=== PATIENT | female | born 1985 | race Caucasian/White ===

== ENCOUNTER 2019-04-11 19:56 | Inpatient (IN) | payer MEDICAID ==
[~2019-04-11] VITALS: Ht 154.9 cm; Wt 67.6 kg
[2019-04-11 20:02] VITALS: Ht 154.9 cm; Wt 67.6 kg
--- NOTE | 2019-04-11 20:04 | NUR ---
EKG IN PROGRESS.
--- NOTE | 2019-04-11 20:10 | NUR ---
EKG REVIWED BY . PT BACK TO [facility] WAITING ROOM AVAILIBLITY . NO DISTRSS.
--- NOTE | 2019-04-11 20:45 | NUR ---
PT C/O CHEST PAIN SINCE 1300. PT DESCRIBES PAIN 8/10 DULL PAIN RADIATING TO LEFT ARM. PT REPORTS NUMBNESS IN THE LEFT ARM. PT REPORTS 8/10 MERA, DESCRIBED PRESSURE. PT REPORTS DIZZINESS AND BLURRED VISION AROUND 1900, BUT REPORTS NO LONGER EXPERIENCING THOSE SYMPTOMS. PT PLACED ON CUSHION STUFFER AND PULSE OX. VSS, RESPS E/U, NAD NOTED AT THIS TIME. WILL CONTINUE TO MONITOR.
--- NOTE | 2019-04-11 21:17 | NUR ---
X-RAY AT BEDSIDE
[2019-04-11 21:28] LABS: PLATELET COUNT 255 x10^3mcL (130-400)
[2019-04-11 21:31] LABS: RED CELL DISTRIBUTION WIDTH 22.3 % (11.5-14.5)
[2019-04-11 21:42] LABS: CALCIUM 9.7 mg/dL (8.5-10.1); CARBON DIOXIDE 21.9 mmol/L (21-32); CHLORIDE SERUM 110 mmol/L (98-107); CREATININE SERUM 0.8 mg/dL (0.6-1.0); GFR1 > 60 mL/min; GLUCOSE SERUM 90 mg/dL (74-106); MONOCYTE 3 % (0-7); POTASSIUM SERUM 3.6 mmol/L (3.5-5.1); SEGMENTED NEUTROPHILS 63 % (37-75); SODIUM SERUM 147 mmol/L (136-145)
--- NOTE | 2019-04-11 21:42 | NUR ---
MEDICATION ADMINISTERED PER MD ORDER
[2019-04-11 21:45] LABS: rbc morphology (normal/abnorm) ABNORMAL (NORMAL); tear drop cell (dacryocyte) 1+
[2019-04-11 21:46] LABS: PLATELET MORPHOLOGY PLATELETS NORMAL
--- NOTE | 2019-04-11 21:47 | NUR ---
PT AWAKE AND ALERT, LAYING IN POSITION OF COMFORT. MERARY RN AT BEDSIDE TO ATTEMPT 20G IV PLACEMENT. VSS, RESPS E/U, NAD NOTE. 2 BED RAILS UP, BED IN LOW AND LOCKED POSITION. CALL LIGHT W/IN REACH. WILL CONTINUE TO MONITOR
[2019-04-11 21:48] LABS: ALBUMIN 3.9 g/dL (3.4-5.0); ALKALINE PHOSPHATASE 59 U/L (46-116); ALT/SGPT 24 U/L (14-59); AST/SGOT 3 U/L (15-37); BILIRUBIN TOTAL 0.46 mg/dL (0.20-1.00); HDL CHOLESTEROL 36 mg/dL (40-60); LIPASE 44 IU/L (73-393); TRIGLYCERIDES 68 mg/dL (<150)
[2019-04-11 21:49] LABS: CHOLESTEROL 127 mg/dL (<200); CHOLESTEROL/HDL RATIO 3.5
[2019-04-11 21:55] LABS: T3 TOTAL 1.09 ng/mL
[2019-04-11 22:26] LABS: FREE T4 0.9 ng/dL (0.76-1.46); FREE THYROXINE INDEX 2.5 ug/dL (1.4-4.5); T4(THYROXINE) 7.8 ug/dL (4.7-13.3)
--- NOTE | 2019-04-11 22:58 | NUR ---
PT AWAKE AND ALERT, LAYING IN POSITION OF COMFORT. 2 BED RAILS UP, BED IN LOW AND LOCKED POSITION. VSS, RESPS E/U, NAD NOTED AT THIS TIME. PT ON 2L O2 VIA NC. PT C/O 04/05 MERA PAIN. MADE AWARE.
--- NOTE | 2019-04-11 23:06 | NUR ---
RREPORT GIVEN TO NEREYDA HUGHES
[2019-04-11 23:39] VITALS: BP 127/78
[2019-04-12] VITALS (12 sets, daily range): BP systolic 103–146; BP diastolic 52–83
--- NOTE | 2019-04-12 00:03 | NUR ---
PT ARRIVED ON THE FLOOR FROM ED. REPORT WAS RECIEVED FROM NURSE EARLENE. PT IS A/O X4. PT IS ON TELE #11 NSR. PT DENIES ANY PAIN AT THIS TIME. PT BREATHING IS EVEN AND UNLABORED. PT IS ON O2 2L NC. LUNG SOUNDS ARE CLEAR BILATERALLY. MILD SOB AT EXERTION. PT HAS MILD GENERAL WEAKNESS. PT IS ON MENSTRUL CYCLE. PT STATED HEAVY PERIODS IN THE LAST MONTHS. BLOOD TRANSFUSION PAMPLET GIVEN. PT SIGNED BLOOD TRANSFUSION CONSENT. WILL CONTINUE TO MONITOR.
--- NOTE | 2019-04-12 00:25 | NUR ---
STARTING THE FIRST UNIT OF PRBC, VSS, TYLENOL AND BENADRYL MEDICATED PER MD ORDER, EDUCATED PT WITH BLOOD TRANSFUSION ALLERY REACTION OF S&S, PT VERBALIZED UNDERSTANDING, REAMINING AT BEDSIDE WITH PT FOR FIRST 15 MINS.
--- NOTE | 2019-04-12 00:34 | NUR ---
STARTING THE 1ST UNIT OF PRBC, BLOOD INFUSING @ 70 ML/HR FOR INITIAL RATE, PT C/O OF MILD ITCHNESS ON HER FACE AND LEGS BUT NO RASHES NOTED, PT DENIES CHEST PAIN, BACK PAIN OR DIFFICULTY BREATHING, DR RICE MADE AWARE, PER DR DWAYNE MEDEIROS TO CONTINUE WITH BLOOD TRANSFUSION AND WILL MEDICATE PT WITH ADDITIONAL 25MG BENADRYL VIA IVP.
--- NOTE | 2019-04-12 00:35 | NUR ---
PT STILL C/O OF BACK PAIN DURING BLOOD TRANFUSION, DR RICE MADE AWARE, PER DR DWAYNE MEDEIROS TO CONTINUE WITH BLOOD TRANSFUSION AND MEDICATE PT WITH TRAMADOL PO, ORDER WILL CARRY OUT.
--- NOTE | 2019-04-12 00:40 | NUR ---
AFTER 15 MINS OF 1ST UNIT BLOOD TRANSFUSION, PT DENIES ANY DIFFICULTY BREATHING, ARM PAIN, NO ELEVATED TEMP, HYPOTENSION, JUST C/O OF BACK PAIN, WILL MEDICATE PT.
--- NOTE | 2019-04-12 00:45 | NUR ---
MEDICATED PT WITH ADDITIONAL BENADRYL 25 MG IVP X 1 AND TRAMADOL 50MG PO, WILL CONTINUE TO MONITOR.
--- NOTE | 2019-04-12 00:50 | NUR ---
AFTER INCREASED THE BLOOD TRANSFUSION RATE, PT STARTED TO C/O O SEVERE CHEST PAIN, TACHYPNEA, HEART RATE ON MANAGER READING INCREASED TO 180'S AND PT C/O THAT SHE IS NOT FEELING GOOD, STOP BLOOD TRANSFUSION PER PROTOCOL, DR RICE AND MARIELENA MADE AWARE, PER DR RICE AND DR PEGUERO THAT OKAY TO STOP BLOOD TRANFUSION AT THIS TIME AND SEND THE SPECIMEN TO BLOOD BANK BUT NO LABS ORDER NEED TO ORDER AT THIS TIME, PER DR RICE WILL ORDER 500 ML NS BOLUS X 1, PT'S VITAL SIGN AFTER BLOOS TRANFSUION STOPPED- TEMP:98.0, HR:82, BP-146/83, RR:18, SPO2:100% VIA NC 2 LITERS, PER DR PEGUERO PLEASE RESUME THE 2ND UNIT OF BLOOD AFTER 1 HOUR AND WILL MEDICATE PT PRIOR BLOOD TRANSFUSION.
--- NOTE | 2019-04-12 01:30 | NUR ---
INFUSING NS 500ML BOLUS X 1 AT THIS TIME, PT IS AWAKE, ALERT AND ORIENTED X 4, STILL NOTED PALE AND GENERALIZED WEAKNESS, ASSISTED PT TO RESTROOM AND BACK TO BED WITHOUT ANY INCIDENT, PT VOIDED 200ML BLOODY URINE WITH SMALL CLOTS DUE TO SHE IS ON HER MENSTRUL CYCLE, UA SPECIMEN COLLECTED. PT DENIES ANY CHEST PAIN, BACK PAIN OR DIFFICULTY BREATHING AT THIS TIME, NO RASH OR HIVES NOTED. WILL CONTINUE TO MONITOR.
[2019-04-12 02:16] LABS: MAGNESIUM 1.9 mg/dL (1.8-2.4)
[2019-04-12 02:44] LABS: UA SPECIFIC GRAVITY >=1.030 (1.005-1.035); microscopic required? YES; urine erythrocyte 3+ (NEGATIVE)
--- NOTE | 2019-04-12 02:44 | NUR ---
ROUNDS MADE, PT IS AWAKE AND RESTING IN BED, APPEARS COMFORTABLE, PT DENIES ANY CHEST PAIN, BACK PAIN, OR ITCHING AT THIS TIME, NS 500 ML BOLUS COMPLETED PER MD ORDER, DR RICE MADE AWARE, PER DR RICE OKAY TO TRANSFUSE 2ND UNIT OF PRBC BUT NEED TO MEDICATE PT WITH ATIVAN X 1 PRIOR, WILL CARRY OUT ORDER.
--- NOTE | 2019-04-12 02:53 | NUR ---
MEDICATED PT WITH ATIVAN 1MG VIA IVP PER MD ORDER, EXPLAINED THE S&E OF ATIVAN, PT VERBALIZED UNDERSTANDING, FAMILY MEMBERS REMAINING AT BEDSIDE.
[2019-04-12 02:57] LABS: AMPHETAMINE QUAL UR NONE DETECTED (See below)
--- NOTE | 2019-04-12 03:18 | NUR ---
PER DR RICE THAT OKAY TO START 2ND UNIT OF PRBC AFTER MEDICATED ATIVAN IVP, PT'S VITAL SIGN PRIOR BLLOD TRANSFUSION- TEMP:97.7, HR:76, BP:112/60, RR:18, SPO2:100% WITH NC 2 LITERS, EDUCATED PT WITH ADVERSE REACTION OF BLOOD TRANSFUSION, PT VERBALIZED UNDERSTANDING, NURSE REMAINS AT BEDSIDE WITH PT DURING THE FIRST 15 MINS OF BLOOD TRANSFUSION.
--- NOTE | 2019-04-12 03:33 | NUR ---
AFTER 15 MINS STARTING THE BLOOD TRANSFUSION, PT DENIES ANY CHEST PAIN, BACK PAIN OR DIFFICULTY BREATHING, ONLY C/O OF MILD ITCHINESS TO HER GIAN LEGS BUT LESS THAN EARLIER, MADE DR RICE AWARE, PER DR DWAYNE MEDEIROS TO GIVE BENADRYL PO NOW AND REMAIN BLOOD TRANSFUSION RATE AT 50 ML/HR.
--- NOTE | 2019-04-12 03:41 | NUR ---
BENADRYL 25MG PO GIVEN PER MD ORDER, PT STATED THAT SHE IS NOT FEELING ITCHING OR ANY CHEST PAIN, BACK PAIN AT THIS TIME, UPDATED WITH DR RICE ABOUT PT'S CONDITION, PER DR RICE THAT OKAY TO INCREASE BLOOD TRANSFUSION RATE TO 80 ML/HR, WILL CONTINUE TO MONITOR, NURSE REMAINS AT BEDSIDE.
--- NOTE | 2019-04-12 04:16 | NUR ---
ROUNDS MADE, PT ASLEEP BUT EASILY AROUSABLE, BREATHING EVEN AND UNLABORED ON O2 2L VIA NC, BLOOD TRANSFUSION INFUSING @ 80 ML/HR, NO S&S OF ADVERSE REACTION NOTED, ON TELE#11 NSR, NO DISTRESS NOTED, FAMILY MEMBER REMAINING AT BEDSIDE.
--- NOTE | 2019-04-12 06:48 | NUR ---
BLOOD TRANFUSION COMPLETED, NO ADVERSE REACTION NOTED, PT ASLEEP BUT EASILY AROUSABLE, APPEARS COMFORTABLE, NO S&S OF CHEST PAIN, BACK PAIN OR DIFFICULTY BREATHING, VSS, DR PEGUERO MADE AWARE NEED LASIX PO ORDER X 1 FOR POST BLOOD TRANSFUSION BUT NO ORDER RECEIVE AT THIS TIME, WILL CONTINUE TO MONITOR.
--- NOTE | 2019-04-12 06:55 | NUR ---
SPOKE WITH LAB STAFF LATASHA PAGAN AWARE OF PT IS DONE WITH BLOOD TRANSFUSION AND OKAY TO DRAW BLOOD @ 0705.
--- NOTE | 2019-04-12 07:15 | NUR ---
RECEIVED PT. IN BED A/A/O X4. NO SOB, NO N/V NOTED. PT. DENIES ANY PAIN AT THIS TIME. IV SITE #1 NOTED TO Tony LEUNG. IV SITE #2 NOTED TO Denny MIRANDA. SPOUSE AT BEDSIDE. BED IN LOW POS., CALL LIGHT WITHIN REACH. SIDE RAILS UP X3.
--- NOTE | 2019-04-12 07:23 | NUR ---
BEDSIDE HANDOFF REPORT DONE WITH SANCHEZ, ALL QUESTIONS ANSWERED AND CONCERNS ADDRESSED. PT IS AWAKE AND RESTING IN BED, DENIES ANY PAIN OR DISCOMFORT.
[2019-04-12 08:18] LABS: PLATELET COUNT 173 x10^3mcL (130-400)
[2019-04-12 08:27] LABS: CALCIUM 8.6 mg/dL (8.5-10.1); CARBON DIOXIDE 23.5 mmol/L (21-32); CHLORIDE SERUM 109 mmol/L (98-107); CREATININE SERUM 0.6 mg/dL (0.6-1.0); GFR1 > 60 mL/min; GLUCOSE SERUM 103 mg/dL (74-106); POTASSIUM SERUM 3.7 mmol/L (3.5-5.1); SODIUM SERUM 144 mmol/L (136-145)
[2019-04-12 08:41] LABS: BASOPHIL % 0 % (0-2); RED CELL DISTRIBUTION WIDTH 29.2 % (11.5-14.5)
[2019-04-12 10:45] LABS: ovalocyte/elliptocyte 1+; rbc morphology (normal/abnorm) ABNORMAL (NORMAL); tear drop cell (dacryocyte) 1+
--- NOTE | 2019-04-12 13:12 | NUR ---
CALLED AND SPOKE WITH RADHA FROM BLOOD BANK REGARDING AVAILABILITY OF PRBC. RADHA SAID SHE WILL CALL TO NOTIFY NURSE WHEN PRBC IS AVAILABLE.
--- NOTE | 2019-04-12 16:19 | NUR ---
PRBC STARTED AT 60 CC/HR. B/P= 100/60, P= 71, R.R.= 16, T= 98.0, O2 SAT.= 98% (RA).
--- NOTE | 2019-04-12 16:34 | NUR ---
PRBC INFUSION INCREASED TO 80 CC/HR.
--- NOTE | 2019-04-12 16:50 | NUR ---
C/O FEELING ANXIOUS. ATIVAN 1MG IV GIVEN.
--- NOTE | 2019-04-12 17:03 | NUR ---
Discount pharmacy card and list to low cost medical clinics given to patient by Kyleigh Queen.
--- NOTE | 2019-04-12 18:38 | NUR ---
REMAINS IN STABLE CONDITION AT THIS TIME. PRBC STILL ON-GOING. WILL CONTINUE TO MONITOR.
--- NOTE | 2019-04-12 19:26 | NUR ---
RECEIVED PATIENT IN BED AWAKE WITH NO SIGN OF ACUTE DISTRESS, BREATHING EASY AND NONLABOR SATTING AT 97% RA. BLOOD TRANSFUSION ONGOING WITH NO SIGN OF ADVERSE REACTION. FAMILY MEMBERS AT BEDSIDE. TELE#11 NSR ON MONITOR, DENIES CHESTPAIN. WILL CONTINUE TO MONITO. CALL LIGHT WITHIN REACH.
--- NOTE | 2019-04-12 20:24 | NUR ---
BLOOD TRANSFUSION DONE WITH NO SIGN OF ADVERSE REACTION NOTED. PATIENT TOLERATED THE BLOOD TRANSFUSION WITH NO SIGN OF DISTRESS, AT BEDSIDE. WILL CONTINUE TO MONITOR.
[2019-04-12 22:14] LABS: PLATELET COUNT 187 x10^3mcL (130-400)
[2019-04-12 22:20] LABS: MONOCYTE 3 % (0-7); SEGMENTED NEUTROPHILS 63 % (37-75)
[2019-04-12 22:21] LABS: PLATELET MORPHOLOGY PLATELETS NORMAL; rbc morphology (normal/abnorm) ABNORMAL (NORMAL); tear drop cell (dacryocyte) 1+
--- NOTE | 2019-04-12 23:24 | NUR ---
APPEARS SLEEPING AT THIS TIME WITH EYES CLOSED, NO SIGN OF DISTESS NOTED.
[2019-04-13 04:57] VITALS: BP 109/59
--- NOTE | 2019-04-13 05:03 | NUR ---
SLEPT AT LONG INTERVALS NO SIGNIFICANT CHANGES IN CONDITION NOTED. ALL NEEDS ATTENDED.
--- NOTE | 2019-04-13 07:00 | NUR ---
RECEIVED BEDSIDE REPORT FROM PHARMACIST PER DIEM NURSE AT THIS TIME. PATIENT RESTING COMFORTABLY IN BED. NO APPARENT DISTRESS OR DISCOMFORT NOTED. BREATHING EVEN AND UNLABORED. NO RESPIRATORY DISTRESS NOTED. NO INDICATION OF SHORTNESS OF BREATH. NO INDICATION OF CHEST PAIN AT THIS TIME. IV PATENT AND INTACT. ALL QUESTIONS AND CONCERNS ADDRESSED. ALL NEEDS ATTENDED TO. FAMILY MEMBER AT BEDSIDE. WILL CONTINUE TO MONITOR
[2019-04-13 07:23] LABS: PLATELET COUNT 217 x10^3mcL (130-400)
[2019-04-13 07:28] LABS: RED CELL DISTRIBUTION WIDTH 32.2 % (11.5-14.5)
[2019-04-13 08:30] LABS: CARBON DIOXIDE 27.1 mmol/L (21-32); CHLORIDE SERUM 109 mmol/L (98-107); CREATININE SERUM 0.6 mg/dL (0.6-1.0); GFR1 > 60 mL/min; GLUCOSE SERUM 97 mg/dL (74-106); POTASSIUM SERUM 4.1 mmol/L (3.5-5.1); SODIUM SERUM 145 mmol/L (136-145)
[2019-04-13 08:58] VITALS: BP 116/66
[2019-04-13 09:19] LABS: BAND NEUTROPHIL 0 % (0-10); BASOPHIL 0 % (0-2); MONOCYTE 5 % (0-7); SEGMENTED NEUTROPHILS 69 % (37-75); rbc morphology (normal/abnorm) ABNORMAL (NORMAL)
[2019-04-13 09:20] LABS: ovalocyte/elliptocyte 2+
[2019-04-13 09:21] LABS: tear drop cell (dacryocyte) 2+
[2019-04-13 09:26] LABS: PLATELET MORPHOLOGY PLATELETS DECREASED
[2019-04-13 09:47] LABS: IRON 14 ug/dL (50-170); TOTAL IRON BINDING CAPACITY 476 ug/dL (250-450)
--- NOTE | 2019-04-13 10:19 | NUR ---
ALL MORNING MEDICATIONS ADMINISTERED. PATIENT TOLERATED WELL. NO ADVERSE EFFECT NOTED. ALL NEEDS ATTENDED TO. WILL CONTINUE TO MONITOR
[2019-04-13 12:32] VITALS: BP 123/72
--- NOTE | 2019-04-13 12:52 | NUR ---
PATIENT SITTING UP IN BED EATING LUNCH AT THIS TIME. PATIENT TOLERATING DIET WELL. NO APPARENT DISTRESS OR DISCOMFORT NOTED. ALL NEEDS ATTENDED TO. WILL CONTINUE TO MONITOR
[2019-04-13] MEDS ORDERED: FERROUS SULFAT325 M2 PO (13:46)
[2019-04-13 14:15] VITALS: BP 123/72
--- NOTE | 2019-04-13 15:31 | NUR ---
PATIENT STABLE TO BE DISCHARGED TO HOME. DISCHARGE INSTRUCTIONS GIVEN WELL EDUCATION. INSTRUCTED PATIENT TO MAKE FOLLOW UP APPOINTMENT. PATIENT VERBALIZES UNDERSTANDING. IV REMOVED WITH CATH INTACT. ID BANDS REMOVED. TELE MONITOR REMOVED AND RETURNED TO [employer] REPAIRMEN. ALL BELONGINGS WITH PATIENT. PROVIDED CD IMAGES OF ULTRASOUN. ALL QUESTIONS AND CONCERNS ADDRESSED. ALL NEEDS ATTENDED TO. TO BE ESCORTED DOWN TO THE LOBBY
== END 2019-04-13 15:43 | disposition home or self-care (01) | DRG 663 ==
LOC: ED 19:56 → DU 22:46 → MU 22:46 → DU 23:16
PROVIDERS: General Practice; Specialist; ADMIT Internal Medicine
PROC: 30233N1 Transfusion of Nonautologous Red Blood Cells into Peripheral Vein, Percutaneous Approach (ICD-10-PCS; principal; 2019-04-12)
DX: D62 Acute posthemorrhagic anemia (principal); N17.0 Acute kidney failure with tubular necrosis; M94.0 Chondrocostal junction syndrome [Tietze]; N92.0 Excessive and frequent menstruation with regular cycle; D25.9 Leiomyoma of uterus, unspecified; Z68.26 Body mass index [BMI] 26.0-26.9, adult
CPT/HCPCS: 83880; 84439; G0378; J1200; J1885; J1940; J2060; J7030; J7040; J7050; P9016; Q0092; Q0163

== ENCOUNTER 2019-11-17 18:32 | Inpatient (IN) | payer MEDICAID ==
[~2019-11-17] VITALS: Ht 157.5 cm; Wt 69.9 kg
[~2019-11-17 18:32] MED LIST: FERROUS SULFAT325 M2 PO
[2019-11-17 19:26] VITALS: Ht 157.5 cm; Wt 69.9 kg
[2019-11-17 19:52] LABS: BASOPHIL % 0.4 % (0-2); PLATELET COUNT 369 x10^3mcL (130-400)
[2019-11-17 19:57] LABS: RED CELL DISTRIBUTION WIDTH 20.3 % (11.5-14.5)
[2019-11-17 20:01] LABS: CARBON DIOXIDE 25.8 mmol/L (21-32); CHLORIDE SERUM 108 mmol/L (98-107); CREATININE SERUM 0.8 mg/dL (0.6-1.0); GFR1 > 60 mL/min; GLUCOSE SERUM 94 mg/dL (74-106); POTASSIUM SERUM 3.4 mmol/L (3.5-5.1); SODIUM SERUM 144 mmol/L (136-145)
[2019-11-17 20:08] LABS: ALBUMIN 3.7 g/dL (3.4-5.0); ALT/SGPT 18 U/L (14-59); AST/SGOT 12 U/L (15-37); BILIRUBIN TOTAL 0.3 mg/dL (0.20-1.00); CALCIUM 8.9 mg/dL (8.5-10.1); TOTAL PROTEIN, SERUM 7.7 g/dL (6.4-8.2)
[2019-11-17 20:09] LABS: ALKALINE PHOSPHATASE 66 U/L (46-116)
[2019-11-17 20:11] LABS: AMPHETAMINE QUAL UR NONE DETECTED (See below)
[2019-11-17 20:24] LABS: ovalocyte/elliptocyte 1+; rbc morphology (normal/abnorm) ABNORMAL (NORMAL); tear drop cell (dacryocyte) 1+
[2019-11-17 23:23] VITALS: BP 117/61
[2019-11-18 05:51] VITALS: BP 96/61
[2019-11-18 07:03] LABS: BASOPHIL % 0.1 % (0-2); PLATELET COUNT 334 x10^3mcL (130-400)
[2019-11-18 07:09] LABS: RED CELL DISTRIBUTION WIDTH 31.2 % (11.5-14.5)
[2019-11-18 07:37] LABS: CHLORIDE SERUM 109 mmol/L (98-107); POTASSIUM SERUM 3.9 mmol/L (3.5-5.1); SODIUM SERUM 142 mmol/L (136-145)
[2019-11-18 07:38] LABS: CALCIUM 8.7 mg/dL (8.5-10.1); CARBON DIOXIDE 27.8 mmol/L (21-32); CREATININE SERUM 0.7 mg/dL (0.6-1.0); GFR1 > 60 mL/min; MAGNESIUM 1.9 mg/dL (1.8-2.4); PHOSPHOROUS 4.3 mg/dL (2.5-4.9)
[2019-11-18 07:39] LABS: GLUCOSE SERUM 85 mg/dL (74-106)
[2019-11-18 08:44] VITALS: BP 110/65
[2019-11-18 12:35] VITALS: BP 115/75
[2019-11-18 16:23] VITALS: BP 105/58
[2019-11-18 20:05] VITALS: BP 115/69
[2019-11-19 04:45] VITALS: BP 110/68
[2019-11-19 06:23] LABS: BASOPHIL % 0.1 % (0-2); PLATELET COUNT 347 x10^3mcL (130-400)
[2019-11-19 06:28] LABS: RED CELL DISTRIBUTION WIDTH 31.2 % (11.5-14.5)
[2019-11-19 07:43] LABS: CALCIUM 8.6 mg/dL (8.5-10.1); CARBON DIOXIDE 24.1 mmol/L (21-32); CHLORIDE SERUM 109 mmol/L (98-107); CREATININE SERUM 0.6 mg/dL (0.6-1.0); GFR1 > 60 mL/min; GLUCOSE SERUM 88 mg/dL (74-106); PHOSPHOROUS 3.6 mg/dL (2.5-4.9); POTASSIUM SERUM 3.8 mmol/L (3.5-5.1); SODIUM SERUM 141 mmol/L (136-145)
[2019-11-19 07:55] VITALS: BP 111/72
[2019-11-19 11:08] LABS: ovalocyte/elliptocyte 3+
[2019-11-19 11:52] VITALS: BP 115/66
[2019-11-19 12:44] LABS: rbc morphology (normal/abnorm) ABNORMAL (NORMAL)
[2019-11-19 15:56] VITALS: BP 108/57
[2019-11-19 19:19] VITALS: BP 115/64
[2019-11-20 05:31] VITALS: BP 111/68
[2019-11-20 06:43] LABS: BASOPHIL % 0.2 % (0-2); PLATELET COUNT 290 x10^3mcL (130-400)
[2019-11-20 07:20] LABS: CALCIUM 8.3 mg/dL (8.5-10.1); CARBON DIOXIDE 25.9 mmol/L (21-32); CHLORIDE SERUM 110 mmol/L (98-107); CREATININE SERUM 0.7 mg/dL (0.6-1.0); GFR1 > 60 mL/min; GLUCOSE SERUM 84 mg/dL (74-106); POTASSIUM SERUM 4.2 mmol/L (3.5-5.1); SODIUM SERUM 143 mmol/L (136-145)
[2019-11-20 07:23] VITALS: BP 125/73
[2019-11-20 07:23] LABS: RED CELL DISTRIBUTION WIDTH 31.9 % (11.5-14.5)
[2019-11-20] MEDS ORDERED: PROV5 PO (08:26)
[2019-11-20] MEDS ORDERED: FER300 PO (08:26)
[2019-11-20 11:43] VITALS: BP 112/49
[2019-11-20 11:45] VITALS: BP 125/73
== END 2019-11-20 13:58 | disposition home or self-care (01) | DRG 517 ==
LOC: ED 18:32 → DU 21:18 → MU 11-19 11:00
PROVIDERS: Emergency Medicine; Obstetrics & Gynecology; ADMIT Student in an Organized Health Care Education/Training Program
PROC: 0UDB7ZZ Extraction of Endometrium, Via Natural or Artificial Opening (ICD-10-PCS; principal; 2019-11-19 11:00)
DX: N92.0 Excessive and frequent menstruation with regular cycle (principal); D62 Acute posthemorrhagic anemia; E87.8 Other disorders of electrolyte and fluid balance, not elsewhere classified; D25.9 Leiomyoma of uterus, unspecified; E86.0 Dehydration; M94.0 Chondrocostal junction syndrome [Tietze]; E87.6 Hypokalemia; Z68.27 Body mass index [BMI] 27.0-27.9, adult
CPT/HCPCS: G0378; J1885; J2250; J2270; J2405; J2704; J3010; J7030; J7050; J7120; P9016; Q0163

== ENCOUNTER 2019-12-11 12:55 | Emergency (ER) | payer MEDICAID ==
[~2019-12-11] VITALS: Ht 157.5 cm; Wt 70.8 kg
[~2019-12-11 12:55] MED LIST changes: +FER300 PO; +PROV5 PO
[2019-12-11 13:04] VITALS: Ht 157.5 cm; Wt 70.8 kg
[2019-12-11 13:43] LABS: BASOPHIL % 0.5 % (0-2); PLATELET COUNT 324 x10^3mcL (130-400)
[2019-12-11 13:45] LABS: RED CELL DISTRIBUTION WIDTH 34.3 % (11.5-14.5)
[2019-12-11 13:48] LABS: CARBON DIOXIDE 23.6 mmol/L (21-32); CHLORIDE SERUM 110 mmol/L (98-107); CREATININE SERUM 0.7 mg/dL (0.6-1.0); GFR1 > 60 mL/min; GLUCOSE SERUM 100 mg/dL (74-106); POTASSIUM SERUM 3.4 mmol/L (3.5-5.1); SODIUM SERUM 144 mmol/L (136-145)
[2019-12-11 13:51] LABS: ALBUMIN 3.8 g/dL (3.4-5.0); ALKALINE PHOSPHATASE 57 U/L (46-116); ALT/SGPT 25 U/L (14-59); AST/SGOT 15 U/L (15-37); BILIRUBIN TOTAL 0.4 mg/dL (0.20-1.00); TOTAL PROTEIN, SERUM 7.6 g/dL (6.4-8.2)
[2019-12-11] MEDS ORDERED: LARIN (18:01)
[2019-12-11 19:24] VITALS: BP 130/76
== END 2019-12-11 19:15 | disposition home or self-care (01) ==
LOC: ED 12:55
DX: N92.0 Excessive and frequent menstruation with regular cycle (principal); R10.2 Pelvic and perineal pain; D64.9 Anemia, unspecified
CPT/HCPCS: 85378; J1885; J7030; Q9967

== ENCOUNTER 2020-03-06 18:14 | Emergency (ER) | payer MEDICAID ==
[~2020-03-06] VITALS: Ht 160 cm; Wt 73.9 kg
[~2020-03-06 18:14] MED LIST changes: +LARIN
[2020-03-06 18:26] VITALS: Ht 160 cm; Wt 73.9 kg
[2020-03-06 19:43] LABS: BASOPHIL % 0.1 % (0-2); PLATELET COUNT 219 x10^3mcL (130-400)
[2020-03-06 19:54] VITALS: BP 135/77
[2020-03-06 19:58] LABS: CALCIUM 8.9 mg/dL (8.5-10.1); CARBON DIOXIDE 21.1 mmol/L (21-32); CHLORIDE SERUM 106 mmol/L (98-107); CREATININE SERUM 0.8 mg/dL (0.6-1.0); GFR1 > 60 mL/min; GLUCOSE SERUM 81 mg/dL (74-106); POTASSIUM SERUM 3.7 mmol/L (3.5-5.1); SODIUM SERUM 139 mmol/L (136-145)
[2020-03-06 20:03] LABS: ALBUMIN 3.2 g/dL (3.4-5.0); ALKALINE PHOSPHATASE 50 U/L (46-116); ALT/SGPT 16 U/L (14-59); AST/SGOT 12 U/L (15-37); BILIRUBIN TOTAL 0.3 mg/dL (0.20-1.00); TOTAL PROTEIN, SERUM 7.2 g/dL (6.4-8.2)
[2020-03-06 20:15] LABS: RED CELL DISTRIBUTION WIDTH 21.2 % (11.5-14.5)
== END 2020-03-06 23:10 | disposition home or self-care (01) ==
LOC: ED 18:14
PROVIDERS: Emergency Medicine
DX: D25.9 Leiomyoma of uterus, unspecified (principal); D64.9 Anemia, unspecified; R07.89 Other chest pain
CPT/HCPCS: 36415; J1885; Q0162